=== PATIENT | female | born 1990 | race African-American/Black ===

== ENCOUNTER 2019-07-23 18:03 | Emergency (ER) | payer OTHER ==
[2019-07-23 18:12] VITALS: BP 120/91; PULSE 71; TEMP 98.5; BMI 18.8
--- NOTE | 2019-07-23 19:28 | PDOC ---
History of Present Illness - General Chief Complaint: Toothache Stated Complaint: TOOTHACHE Time Seen by Provider: 07/23/19 18:58 History Source: Patient Exam Limitations: No Limitations - History of Present Illness Initial Comments: 07/23/19 19:24 29 year old female with no significant medical or surgical history presents today for toothache and tooth infection. Patient states she was told she needs 10 root canals and is taking amoxicillin and using acetaminophen. States she is concerned about whether or not she needs a stronger antibiotics. Also requesting letter that indicates that she has a tooth infection. Denies fever or chills. Is this a multiple visit Asthma Patient?: No Timing/Duration: unsure, 1 week Severity: mild Modifying Factors: improves with: medication Associated Symptoms: reports: denies symptoms Aspirin Received prior to arrival: Yes: no aspirin today Asa Contraindications(Core Measure): No: Allergy Beta Nick Contraindications(Core Measure): Yes: Not Prescribed Beta Nick Given by EMS(Core Measure): No Beta Nick Taken at Home(Core Measure): No Beta Nick Not Indicated at this Time(Core Measure): No Past History - Travel Traveled outside of the country in the last 30 days: No Close contact w/someone who was outside of country & ill: No - Past Medical History Allergies/Adverse Reactions: Allergies Allergy/AdvReac Type Severity Reaction Status Date / Time No Known Allergies Allergy Verified 07/23/19 18:12 COPD: No - Immunization History Immunization Up to Date: Yes - Psycho Social/Smoking Cessation Hx Smoking History: Current some day smoker Number of Cigarettes Smoked Daily: 5 Information on smoking cessation initiated: No Hx Alcohol Use: Yes Review of Systems - Review of Systems Able to Perform ROS?: Yes Is the patient limited Frisian proficient: No Constitutional: No: Chills, Fever, Weakness HEENTM: Yes: Mouth Pain. No: Cataracts, Ear Pain, Nose Pain, Nose Congestion Respiratory: No: Orthopnea, Wheezing Cardiac (ROS): No: Edema, Irregular Heart Rate, Chest Tightness ABD/GI: No: Blood Streaked Bowels, Nausea, Poor Appetite, Vomiting, Indigestion , Abdominal cramping : No: Burning, Hematuria, Incontinence Musculoskeletal: No: Gout, Joint Pain, Muscle Weakness, Neck Pain Integumentary: No: Other Neurological: No: Numbness, Tingling Psychiatric: No: Stressors, Mood Swings Endocrine: No: Excessive Sweating, Flushing, Increased Urine *Physical Exam - Vital Signs Last Vital Signs Temp Pulse Resp BP Pulse Ox 98.5 F 71 18 120/91 100 07/23/19 18:08 07/23/19 18:08 07/23/19 18:08 07/23/19 18:08 07/23/19 18:08 - Physical Exam General Appearance: Yes: Nourished, Appropriately Dressed HEENT: positive: TMs Normal, Pharynx Normal, Other (multiple caries, broken teeth, multiple silver fillings noted. ) Neck: positive: Supple. negative: Lymphadenopathy (R), Lymphadenopathy (L) Respiratory/Chest: positive: Lungs Clear Neurologic: positive: Fully Oriented, Alert Medical Decision Making - Medical Decision Making 07/23/19 19:29 29 year old female with no significant medical or surgical history presents today for toothache and tooth infection. Patient states she was told she needs 10 root canals and is taking amoxicillin and using acetaminophen. #Toothache #Tooth infection d/c home instructed to continue taking same medications Discharge - Discharge Information Problems reviewed: Yes Clinical Impression/Diagnosis: Tooth ache, Tooth caries, Tooth infection Condition: Stable Disposition: HOME - Admission No - Follow up/Referral - Patient Discharge Instructions Patient Printed Discharge Instructions: DI for Tooth Decay, DI for Dental Pain Additional Instructions: Please continue taking antibiotics until completed Take acetaminophen and ibuprofen for pain Follow up with primary physician as previously scheduled - Post Discharge Activity Work/Back to School Note: Back to Work
== END 2019-07-23 19:38 | disposition home or self-care (01) ==
LOC: JERFT 18:03
DX: K04.7 Periapical abscess without sinus (principal); K02.9 Dental caries, unspecified
CPT/HCPCS: 99281-25

== ENCOUNTER 2020-08-14 13:36 | Emergency (ER) | payer OTHER ==
[2020-08-14 13:43] VITALS: BP 147/81; TEMP 98.3; BMI 19.8
[2020-08-14 13:52] VITALS: PULSE 80
[2020-08-14] MEDS ORDERED: IBUPROFEN 600 MG TABLET (FP) PO ONE ×2 (14:04→14:05)
== END 2020-08-14 15:15 | disposition home or self-care (01) ==
LOC: JERFT 13:36
DX: M79.674 Pain in right toe(s) (principal); M54.5 Low back pain
CPT/HCPCS: 72100-TC-FY; 73630-TC-RT-FY; 99284-25

== ENCOUNTER 2020-08-31 00:40 | Emergency (ER) | payer OTHER ==
[2020-08-31 01:13] VITALS: BP 112/71; PULSE 89; TEMP 98.3; BMI 20.7
[2020-08-31 08:31] LABS: HIV INTERPRETATION NEGATIVE (NEGATIVE)
== END 2020-08-31 03:47 | disposition home or self-care (01) ==
LOC: JER 00:40
DX: Z20.2 Contact with and (suspected) exposure to infections with a predominantly sexual mode of transmission (principal)
CPT/HCPCS: 36415; 86780; 87389; 87491; 87591; 99283-25